=== PATIENT | female | born 2000 | race Caucasian/White ===

== ENCOUNTER 2020-06-25 07:13 | Emergency (ER) | payer OTHER, MEDICAID ==
--- NOTE | 2020-06-25 08:11 | EDM.PDOC ---
ED HPI GENERAL MEDICAL PROBLEM - General Chief Complaint: Genitourinary Problem Stated Complaint: UTI SYMPTOMS, BURNING Time Seen by Provider: 06/25/20 08:10 Source of Information: Reports: Patient History Limitations: Reports: No Limitations - History of Present Illness INITIAL COMMENTS - FREE TEXT/NARRATIVE: pt began having frequency and burning 2 days ago. Onset: Other ( started 2 days ago. ) Duration: Hour(s): Location: Reports: Abdomen Associated Symptoms: Reports: Other ( chills) Bladder Pain Score (Numeric/FACES): 5 - Related Data Allergies Allergy/AdvReac Type Severity Reaction Status Date / Time No Known Allergies Allergy Verified 06/25/20 07:50 Home Meds: Home Meds Sertraline [Zoloft] 25 mg PO DAILY 06/25/20 [History] norgestimate-ethinyl estradioL [Estarylla 0.25-0.035 mg Tablet] 1 each PO DAILY 06/25/20 [History] Past Medical History Genitourinary History: Reports: UTI, Recurrent Psychiatric History: Reports: Anxiety Social & Family History - Tobacco Use Tobacco Use Status *Q: Never Tobacco User - Caffeine Use Caffeine Use: Reports: None - Recreational Drug Use Recreational Drug Use: No ED ROS GENERAL - Review of Systems Review Of Systems: See Below Constitutional: Reports: Chills HEENT: Reports: No Symptoms Respiratory: Reports: No Symptoms Cardiovascular: Reports: No Symptoms Endocrine: Reports: No Symptoms : Reports: Dysuria, Frequency, Urgency Musculoskeletal: Reports: No Symptoms Skin: Reports: No Symptoms ED EXAM, RENAL/ - Physical Exam Exam: See Below Text/Narrative:: pt arrived with dysuria and frequency. She has not had a fever. She is chilling at this point. Exam Limited By: No Limitations General Appearance: Alert Ears: Normal TMs Nose: Normal Inspection Throat/Mouth: Normal Inspection Head: Atraumatic Neck: Normal Inspection Respiratory/Chest: No Respiratory Distress (Female) Exam: Other (no tenderness. no fever) Course - Vital Signs Last Recorded V/S: Last Vital Signs Temp 37.1 C 06/25/20 07:49 Pulse 80 06/25/20 07:49 Resp 15 06/25/20 07:49 BP 141/60 H 06/25/20 07:49 Pulse Ox 98 06/25/20 07:49 - Orders/Labs/Meds Labs: Laboratory Tests 06/25/20 Range/Units 07:49 Urine Color Yellow (YELLOW) Urine Appearance Slightly cloudy A (CLEAR) Urine pH 6.0 (5.0-8.0) Ur Specific [place] 1.020 (1.008-1.030) Urine Protein Trace H (NEGATIVE) mg/dL Urine Glucose (UA) Negative (NEGATIVE) mg/dL Urine Ketones Negative (NEGATIVE) mg/dL Urine Occult Blood Small H (NEGATIVE) Urine Nitrite Negative (NEGATIVE) Urine Bilirubin Negative (NEGATIVE) Urine Urobilinogen 0.2 (0.2-1.0) EU/dL Ur Leukocyte Esterase Small H (NEGATIVE) Urine RBC 0-5 (0-5) Urine WBC 30-40 H (0-5) Ur Epithelial Cells Few Amorphous Sediment Not seen Urine Bacteria Few Urine Mucus Not seen - Re-Assessments/Exams Free Text/Narrative Re-Assessment/Exam: 06/25/20 08:16 urine looks infected. She states she usually responds to antibiotics well and has not had resistance. Departure - Departure Time of Disposition: 08:10 Disposition: Home, Self-Care 01 Condition: Fair Clinical Impression: UTI (urinary tract infection) - Discharge Information Referrals: PCP,None [Primary Care Provider] - Forms: ED Department Discharge Care Plan Goals: push fluids, cipro 500mg bid, pyridium 200mg tid for 2 days. rtc if problems Sepsis Event Note (ED) - Evaluation Sepsis Screening Result: No Definite Risk - Focused Exam Vital Signs: Vital Signs Temp Pulse Resp BP Pulse Ox 06/25/20 07:49 37.1 C 80 15 141/60 H 98 06/25/20 07:32 37.1 C 80 15 141/60 H 98
== END 2020-06-25 08:33 | disposition home or self-care (01) ==
LOC: JP.ED 07:13
DX: N39.0 Urinary tract infection, site not specified (principal); Z79.899 Other long term (current) drug therapy
CPT/HCPCS: 81001; 99283

== ENCOUNTER 2020-08-11 20:04 | Emergency (ER) | payer OTHER, MEDICAID ==
--- NOTE | 2020-08-11 20:25 | EDM.PDOC ---
ED HPI GENERAL MEDICAL PROBLEM - General Chief Complaint: Genitourinary Problem Stated Complaint: R SIDE FLANK PAIN Time Seen by Provider: 08/11/20 20:16 Source of Information: Reports: Patient History Limitations: Reports: No Limitations - History of Present Illness INITIAL COMMENTS - FREE TEXT/NARRATIVE: Emily is a 19-year-old female presenting to the ED for evaluation of right- sided flank pain. The patient reports his symptoms started with low back pain around 3 days ago. The pain was limited to the right lower back but now is spread up into the right flank. The patient began exhibiting nausea today and had diarrhea onset yesterday. She has had burning with urination and dark cloudy urine. She does state that she is prone to frequent bladder infections. She denies any fever or chills, cough or sore throat, shortness of breath or chest pain. - Related Data Allergies Allergy/AdvReac Type Severity Reaction Status Date / Time No Known Allergies Allergy Verified 08/11/20 20:17 Home Meds: Home Meds Sertraline [Zoloft] 25 mg PO DAILY 06/25/20 [History] norgestimate-ethinyl estradioL [Estarylla 0.25-0.035 mg Tablet] 1 each PO DAILY 06/25/20 [History] Past Medical History Genitourinary History: Reports: UTI, Recurrent Psychiatric History: Reports: Anxiety Social & Family History - Caffeine Use Caffeine Use: Reports: None ED ROS GENERAL - Review of Systems Review Of Systems: See Below Constitutional: Reports: No Symptoms HEENT: Reports: No Symptoms Respiratory: Reports: No Symptoms Cardiovascular: Reports: No Symptoms Endocrine: Reports: No Symptoms GI/Abdominal: Reports: Diarrhea, Nausea. Denies: Vomiting : Reports: Dysuria, Flank Pain, Frequency, Pain, Urgency Musculoskeletal: Reports: Back Pain (Right lower back) Skin: Reports: No Symptoms Neurological: Reports: No Symptoms Psychiatric: Reports: No Symptoms Hematologic/Lymphatic: Reports: No Symptoms Immunologic: Reports: No Symptoms ED EXAM, RENAL/ - Physical Exam Exam: See Below Exam Limited By: No Limitations General Appearance: Alert, No Apparent Distress, Obese Eye Exam: Bilateral Eye: EOMI, PERRL Head: Atraumatic, Normocephalic Neck: Normal Inspection Respiratory/Chest: No Respiratory Distress, Lungs Clear Cardiovascular: Normal Peripheral Pulses, Regular Rate, Rhythm GI/Abdominal: Normal Bowel Sounds, Soft, Non-Tender Back Exam: CVA Tenderness (R). No: Muscle Spasm, Vertebral Tenderness Extremities: Normal Inspection, Normal Range of Motion Neurological: Alert, Oriented, Normal Cognition, No Motor/Sensory Deficits Psychiatric: Normal Affect, Normal Mood Skin Exam: Warm, Dry, Intact, Normal Color Lymphatic: No Adenopathy Course - Vital Signs Last Recorded V/S: Last Vital Signs Temp 36.3 C 08/11/20 20:18 Pulse 87 08/11/20 20:18 Resp 16 08/11/20 20:18 BP 143/87 H 08/11/20 20:18 Pulse Ox 96 08/11/20 20:18 - Orders/Labs/Meds Labs: Laboratory Tests 08/11/20 Range/Units 20:18 Urine Color Yellow (YELLOW) Urine Appearance Slightly cloudy A (CLEAR) Urine pH 6.0 (5.0-8.0) Ur Specific [place] >= 1.030 (1.008-1.030) Urine Protein Trace H (NEGATIVE) mg/dL Urine Glucose (UA) Negative (NEGATIVE) mg/dL Urine Ketones Negative (NEGATIVE) mg/dL Urine Occult Blood Moderate H (NEGATIVE) Urine Nitrite Negative (NEGATIVE) Urine Bilirubin Negative (NEGATIVE) Urine Urobilinogen 0.2 (0.2-1.0) EU/dL Ur Leukocyte Esterase Trace H (NEGATIVE) Urine RBC 20-30 H (0-5) Urine WBC 10-20 H (0-5) Ur Epithelial Cells Moderate Amorphous Sediment Not seen Urine Bacteria Many Urine Mucus Few - Re-Assessments/Exams Free Text/Narrative Re-Assessment/Exam: 08/11/20 20:44 I reviewed the urinalysis showing 20-40 RBCs and 10-20 WBCs with positive leukocyte esterase. This is significant for urinary tract infection and given the sided CVA tenderness, she likely is developing pyelonephritis as well. We will put her on cephalexin 500 mg twice daily for 10 days. Departure - Departure Time of Disposition: 20:45 Disposition: Home, Self-Care 01 Clinical Impression: Urinary tract infection in female - Discharge Information Instructions: Urinary Tract Infection, Adult, [id number] Referrals: PCP,None [Primary Care Provider] - Forms: ED Department Discharge Care Plan Goals: We are starting you on cephalexin 500 mg twice daily for the next 10 days. Given the right flank pain, you are likely developing pyelonephritis which is an infection in the kidney related to your bladder infection. This is a reason why we are going to 10 days with antibiotics instead of 7. Please make sure you drink plenty of fluids to help keep producing urine. Sepsis Event Note (ED) - Focused Exam Vital Signs: Vital Signs Temp Pulse Resp BP Pulse Ox 08/11/20 20:18 36.3 C 87 16 143/87 H 96 08/11/20 20:14 36.3 C 87 16 143/87 H 96 - Problem List & Annotations (1) Urinary tract infection in female SNOMED Code(s): 49808621, 718174172 Code(s): N39.0 - URINARY TRACT INFECTION, SITE NOT SPECIFIED Status: Acute Priority: Medium Current Visit: Yes - Problem List Review Problem List Initiated/Reviewed/Updated: Yes
== END 2020-08-11 21:00 | disposition home or self-care (01) ==
LOC: JP.ED 20:04
DX: N39.0 Urinary tract infection, site not specified (principal)
CPT/HCPCS: 81001; 99283; 99284